=== PATIENT | female | born 1990 | race Caucasian/White ===

== ENCOUNTER → 2018-01-13 17:03 | Outpatient (CLI) | payer OTHER, SELFPAY ==
[2018-01-13 19:57] LABS: Chlamydia Trachomatis by PCR Negative (Negative); Neisserai gonorrhoeae by PCR Negative (Negative); Probe Check PASS; Sample Adequacy Control PASS; Specimen Processing Control PASS
== END ==
PROVIDERS: Visit Provider Obstetrics & Gynecology
DX: Z32.01 Encounter for pregnancy test, result positive (principal); Z11.3 Encounter for screening for infections with a predominantly sexual mode of transmission
CPT/HCPCS: 87491; 87591

== ENCOUNTER → 2018-02-08 17:20 | Outpatient (CLI) | payer OTHER, SELFPAY ==
[2018-02-08 17:49] LABS: Absolute Lymphocyte Count 1.65 X10^3/ul (0.83-4.51); Absolute Neutrophil Count 6.4 X10^3/uL (2.0-7.7); Basophil# 0.01 X10^3/uL; Basophil% 0.1 % (0-1); Eosinophil# 0.15 X10^3/uL; Eosinophils% 1.7 % (0-5); Hematocrit 32.7 % (37-47); Hemoglobin 10.9 g/dl (12.0-15.0); Lymphocyte # 1.65 X10^3/ul (4.0); Lymphocyte % 18.5 % (19-41); Mean Corp Hgb Conc 33.3 g/gl (32-36); Mean Corpuscular Hgb 31.1 pg (27.0-32.0); Mean Corpuscular Volume 93.2 fL (81-99); Mean Platelet Vol. 10.5 fl (6.2-12.0); Monocyte# 0.64 X10^3/uL; Monocyte% 7.2 % (0-10); Neutrophil # 6.43 X10^3/uL (2.7-7.7); Neutrophil % 72.3 % (47-70); POSITIVE COUNT NO; POSITIVE DIFFERENTIAL NO; POSITIVE MORPHOLOGY NO; Platelet Count 219 K/mm3 (150-450); RBC Distribution Width CV 12.7 % (11.6-14.6); RBC Distribution Width SD 42.2 fl (35.1-43.9); Red Blood Count 3.51 M/mm3 (4.2-5.4); White Blood Count 8.9 K/mm3 (4.4-11.0)
[2018-02-08 17:53] LABS: Color, Urine Yellow (Yellow); Glucose, Dipstick Normal (Normal); Ketone-Dipstick 5 mg/dl (Negative); Leukocyte Esterase-Dipstick Negative /ul (Negative); Nitrite-Dipstick Negative (Negative); Occult Blood-Urine Negative /ul (Negative); Protein-Dipstick 15 mg/dl (Negative); Specific Gravity, Urine 1.025 (1.002-1.030); Urine Bilirubin Dipstick Negative (Negative); Urine Clarity Sl. Cloudy (Clear); Urine Urobilinogen 1 mg/dl (Normal)
[2018-02-08 18:08] LABS: Amphetamine Urine VISTA NEGATIVE (<1000 ng/mL); Barbiturate Urine VISTA NEGATIVE (< 200 ng/mL); Benzodiazepine Urine VISTA NEGATIVE (< 200 ng/mL); Cocaine Urine VISTA NEGATIVE (< 300 ng/mL); Ecstacy Urine VISTA NEGATIVE (< 500 ng/mL); Methadone Urine VISTA NEGATIVE (< 300 ng/mL); PCP Urine VISTA NEGATIVE (< 25 ng/mL); THC Urine VISTA NEGATIVE (< 50 ng/mL); Vista UDS pH Range 6
[2018-02-08 18:33] LABS: Thyroid Stim Hormone (TSH) 2.04 uIU/mL (0.358-3.74)
[2018-02-09 10:16] LABS: HIV - WCH Non-Reactive (Nonreactive); Rubella IgG 357.3 IU/mL
[2018-02-10 12:05] LABS: HEPATITIS B SURFACE AG Negative (Negative); Hep C Antibodies <0.1 s/co ratio (0.0-0.9)
[2018-02-11 02:59] LABS: Prenatal RPR NONREACTIVE (NONREACTIVE)
== END ==
PROVIDERS: Visit Provider Obstetrics & Gynecology
DX: Z34.81 Encounter for supervision of other normal pregnancy, first trimester (principal)
CPT/HCPCS: 36415; 80307; 81002; 84443; 85025; 86703; 86762; 86803; 87340

== ENCOUNTER → 2018-06-02 16:27 | Outpatient (CLI) | payer OTHER, SELFPAY ==
[2018-06-02 17:39] LABS: Hematocrit 31.2 % (37-47); Hemoglobin 10.2 g/dl (12.0-15.0); Mean Corp Hgb Conc 32.7 g/gl (32-36); Mean Corpuscular Hgb 31.7 pg (27.0-32.0); Mean Corpuscular Volume 96.9 fL (81-99); Mean Platelet Vol. 10.7 fl (6.2-12.0); Platelet Count 191 K/mm3 (150-450); RBC Distribution Width CV 12.5 % (11.6-14.6); RBC Distribution Width SD 42.7 fl (35.1-43.9); Red Blood Count 3.22 M/mm3 (4.2-5.4); White Blood Count 10.3 K/mm3 (4.4-11.0)
[2018-06-02 17:43] LABS: Scan Indicated on CBC? Y/N NO
[2018-06-02 17:44] LABS: Glucose Challenge Gest 1H 50g 96 mg/dL (70-140)
[2018-06-03 14:38] LABS: Ferritin 17 ng/mL (8-252)
== END ==
PROVIDERS: Visit Provider Obstetrics & Gynecology
DX: O99.012 Anemia complicating pregnancy, second trimester (principal); D64.9 Anemia, unspecified; Z3A.00 Weeks of gestation of pregnancy not specified
CPT/HCPCS: 36415; 82728; 82950; 85027

== ENCOUNTER → 2018-08-04 16:46 | Outpatient (CLI) | payer OTHER, SELFPAY ==
[2018-08-04 20:13] LABS: Group B Strep DNA By PCR Negative (Negative); Internal Control PASS; Probe Check PASS; Specimen Processing Control PASS
== END ==
PROVIDERS: Visit Provider Obstetrics & Gynecology
DX: Z36.85 Encounter for antenatal screening for Streptococcus B (principal)
CPT/HCPCS: 87081; 87653

== ENCOUNTER 2018-09-01 18:20 | Inpatient (IN) | payer OTHER, SELFPAY ==
[2018-09-01 18:33] VITALS: BMI 28.9
[2018-09-01] MEDS: Lactated Ringers 1,000 ML 50 ML IV ×3 (18:48→22:14)
[2018-09-01] MEDS: Nalbuphine 10 MG/ML Ampul IV (18:49)
[2018-09-01 18:52] LABS: Hematocrit 33.1 % (37-47); Hemoglobin 11.1 g/dl (12.0-15.0); Mean Corp Hgb Conc 33.5 g/gl (32-36); Mean Corpuscular Volume 95.4 fL (81-99); Mean Platelet Vol. 11.1 fl (6.2-12.0); Platelet Count 177 K/mm3 (150-450); RBC Distribution Width CV 12.9 % (11.6-14.6); RBC Distribution Width SD 43.3 fl (35.1-43.9); Red Blood Count 3.47 M/mm3 (4.2-5.4); Scan Indicated on CBC? Y/N NO; White Blood Count 12.6 K/mm3 (4.4-11.0)
[2018-09-01] MEDS: fentaNYL-bupivacaine (epidural) 100 ML BAG EPIDURAL (19:47)
--- NOTE | 2018-09-01 22:33 | PCM.PN.BLA ---
Progress Note LABOR PROGRESS NOTE Gee is comfortable with her epidural and without complaints. AVSS GEN - NAD, AAO x 3 FHR 125, moderate variability, + accelerations, no decelerations TOCO 2-3/10 min SVE 6/90/-2 A/P: 28yo @ 40 3/7wga with Cat I FHR in active labor, -Amniotomy performed with clear fluid -Continue in labor -Maternal and statuses reassuring
[2018-09-02] MEDS: Ondansetron 4 MG/2 ML Vial IV (02:49)
[2018-09-02] MEDS: Oxytocin 30 units/NS 500 ml 30 UNITS/500 ML IV.SOLN 334 UNITS IV (04:38)
[2018-09-02] MEDS: Oxytocin 30 units/NS 500 ml 30 UNITS/500 ML IV.SOLN 167 UNITS IV (05:08)
--- NOTE | 2018-09-02 07:27 | PCM.OB.VAG ---
- Problem List (1) 40 weeks gestation of Status: Acute Vaginal Delivery Maternal Presentation: Active Labor Amniotic Membrane Rupture Type: Artificial Amniotic Fluid Description: Clear Final TASH: 08/29/18 Final TASH Source: US <20 weeks Gestational age: 40 Weeks and 4 Days Date of Procedure: 09/02/18 Pre-Operative Diagnosis: 40 4/7wga, labor Post-Operative Diagnosis: 40 4/7wga, labor Surgery/ Procedure Performed: Spontaneous Vaginal Delivery Anesthesiologist: Janett Diehl Type of Anesthesia: Epidural Description of Procedure: Patient FD/+2 station on my arrival with Cat I-II FHR. She pushed to deliver a male in TRACIE. The infant the was placed on the maternal abdomen and further attended by nursery personnel. The cord was doubly clamped and cut after approximately 4 minutes of life. The placenta delivered spontaneously and appeared intact on inspection. A first degree perineal laceration was repaired with 3-0 Vicryl Rapide. The fundus was firm and there was excellent hemostasis. Sponge counts and needle counts correct x 2. Presentation: Vertex Placental Delivery Description: Spontaneous Placenta Disposition: [facility] Cord Vessel Description: 3 Vessels Nuchal Cord Compression: Without compression Cord Entanglement: None Drain: Rodriguez to straight drain Estimated Blood Loss: 250 ml A gender: Male (1 minute): 8 (5 minute): 9 Episiotomy Description: None Laceration: Midline, Perineal Extension/lac, 1st degree Medications given after delivery: IV Pitocin
--- NOTE | 2018-09-02 07:41 | DCINST_ITS ---
Discharge Diet: No Restrictions Discharge Activity: Return to Normal Activity, May Shower, May Take a Tub Bath May resume sexual activity in: 6 weeks Lifting Restrictions: 20 lb Call your doctor if you observe: Fever of 101 or Higher, Inability to urinate, Inability to have a bowel movement, Using more than one pad per hour, Shortness of breath, Chest pain, Calf discomfort, Uncontrolled pain Suture Line Care: Avoid Pulling/Pushing Cleanse incision/area with: Soap & Water Additional Instructions: If you experience any of the following, contact your healthcare provider. * Bleeding that soaks a pad every hour for 2 hours * Fever 100.4 or higher * Unrelieved incision or abdominal pain * Swelling, redness, discharge or bleeding from your incision or episiotomy site * Your incision begins to separate * Problems urinating (including inability to urinate or burning while urinating). * Visual changes * Severe headache * Flu-like symptoms * Pain or redness in one of both of your breasts * Pain, warmth, tenderness or swelling in your legs, especially the calf area * Frequent nausea and vomiting * Symptoms of depression or anxiety If you experience any of the following, call 911 or go to the nearest Emergency Room. * Chest pain * Problems breathing * Seizure activity * Partial or complete paralysis of a body part, slurred speech, weakness or drooping of the face, or a sudden inability to walk or hold your balance Allergies/Adverse Reactions: Allergies No Known Allergies Allergy (Verified 09/01/18 18:36) Medications to take at Discharge Vits [Prenatabs FA] 1 tablet PO DAILY 11/08/16 Docusate Sodium [Colace] 100 mg PO BID PRN #60 capsule 09/02/18 Ibuprofen 600 mg PO TID PRN #30 tablet 09/02/18 The following prescriptions were given: Docusate Sodium [Colace] 100 mg PO BID PRN #60 capsule PRN Reason: Constipation Ibuprofen 600 mg PO TID PRN #30 tablet PRN Reason: Pain Please Follow Up With: Barbara Dale MD When: 6 weeks Primary Care Physician: Care Physician,No Primary [Primary Care Provider] - Test Results: Test results from this visit will be discussed in further detail at your follow- up appointment, if applicable.
[2018-09-02 09:33] VITALS: BP 117/67; PULSE 80; RESP 16; TEMP 36.8; O2SAT 99
[2018-09-02 13:05] VITALS: BP 118/68; PULSE 84; RESP 16; TEMP 36.6; O2SAT 99
[2018-09-02] MEDS: Ibuprofen 600 MG Tablet PO (13:43)
[2018-09-02] MEDS: Prenatal Vits Tablet 1 TABLET PO (13:57)
[2018-09-02 15:17] VITALS: BP 125/61; PULSE 63; RESP 18; TEMP 36.8; O2SAT 99
[2018-09-02] MEDS: Senna/Docusate Sodium 1 Tablet PO (17:19)
[2018-09-02 20:10] VITALS: BP 106/66; PULSE 61; RESP 16; TEMP 36.6; O2SAT 97
[2018-09-03 00:14] VITALS: BP 107/66; PULSE 87; RESP 16; TEMP 36.5; O2SAT 97
[2018-09-03 04:05] VITALS: BP 107/62; PULSE 67; RESP 16; TEMP 36.6; O2SAT 97
[2018-09-03 09:00] VITALS: BP 115/70; PULSE 78; RESP 18; TEMP 36.5
--- NOTE | 2018-09-03 09:58 | PCM.PN.OB ---
Patient Problems: Active and Suspected Problems (spontaneous vaginal delivery) (Acute) 40 weeks gestation of (Acute) Subjective: No specific complaints. Bleeding light. Breast feeding. Objective: Afeb VSS - Physical Exam General: Alert, Oriented x3, Cooperative, No apparent distress Lungs: Clear to auscultation, Normal air movement Cardiovascular: Regular rate, Regular Rhythm Abdomen: Soft, Non Tender, Non-Distended, - - Fundus firm nontender Extremities: No edema Skin: No rashes Neurological: Neuro grossly intact Psych/Mental Status: Normal Affect Comment: Lochia light Vital Signs Temp Pulse Resp BP Pulse Ox 97.7 F L 78 18 115/70 97 09/03/18 09:00 09/03/18 09:00 09/03/18 09:00 09/03/18 09:00 09/03/18 04:05 Oxygen Delivery Method Room Air Weight: 179 lb 7.3 oz Body Mass Index (BMI) 28.9 Intake and Output for Last 24 Hours 09/01/18 09/02/18 09/03/18 23:59 23:59 23:59 Intake Total 450 / 450 Output Total 650 / 650 Balance 450 / 450 -650 / -650 Medical Necessity - Tobacco Use Smoking Status: Never smoker Assessment/Plan All Active Problems (spontaneous vaginal delivery) (Acute) 40 weeks gestation of (Acute) Doing well on PP day#1. Would prefer dischrge today. Cleared medically for same. Home going instructions and warnings given.
--- NOTE | 2018-09-03 10:01 | PCM.DC.SUM ---
Discharge Date and Diagnosis - Problem List Patient Problems: Active and Suspected Problems (spontaneous vaginal delivery) (Acute) 40 weeks gestation of (Acute) Date of Admission: 09/02/18 Date of Discharge: 09/03/18 - Primary Discharge Diagnosis Active and Suspected Problems (spontaneous vaginal delivery) (Acute) 40 weeks gestation of (Acute) Hospital Course and Treatment Operations: None Procedures: - - Summary of Care Provided: The patient is a 28 year old F [admitted in sctive labor progressed to FD then pushed to deliver a live without complication. Discharged home on PP day#1. ] Discharge Diet: No Restrictions Discharge Activity: Return to Normal Activity, May Shower, May Take a Tub Bath Return to work on:: 11/02/18 May shower in (days): 0 May resume sexual activity in: 6 weeks Call your doctor if you observe: Fever of 101 or Higher, Inability to urinate, Inability to have a bowel movement, Using more than one pad per hour, Shortness of breath, Chest pain, Calf discomfort, Uncontrolled pain Suture Line Care: Avoid Pulling/Pushing Cleanse incision/area with: Soap & Water Home Medications: Medications to take at Discharge Vits [Prenatabs FA] 1 tablet PO DAILY 11/08/16 Docusate Sodium [Colace] 100 mg PO BID PRN #60 capsule 09/02/18 Ibuprofen 600 mg PO TID PRN #30 tablet 09/02/18 Following Prescrptions Were Given to Patient: Docusate Sodium [Colace] 100 mg PO BID PRN #60 capsule PRN Reason: Constipation Ibuprofen 600 mg PO TID PRN #30 tablet PRN Reason: Pain Primary Care Physician: Care Physician,No Primary [Primary Care Provider] - Please Follow Up With: Barbara Dale MD When: 6 weeks Disposition: Home Minutes spent on discharge:: 15 Patient Condition:: Good Medical Necessity - Tobacco Use Smoking Status: Never smoker Meaningful Use Info Meaningful Use Diagnoses (Choose all that apply): None applicable
[2018-09-03] MEDS: Ibuprofen 600 MG Tablet PO (10:16)
[2018-09-03] MEDS: Prenatal Vits Tablet 1 TABLET PO (13:04)
[2018-09-03 14:25] VITALS: BP 110/64; PULSE 62; RESP 18; TEMP 36.5
== END 2018-09-03 14:25 | disposition home or self-care (01) | DRG 807 ==
LOC: WPOUT 18:27
PROVIDERS: Admitting Provider Obstetrics & Gynecology; Referring Provider Obstetrics & Gynecology; Visit Provider Obstetrics & Gynecology
DX: O48.0 Post-term pregnancy (principal); Z37.0 Single live birth; Z3A.40 40 weeks gestation of pregnancy; O70.0 First degree perineal laceration during delivery; O99.02 Anemia complicating childbirth; D50.9 Iron deficiency anemia, unspecified; Z79.899 Other long term (current) drug therapy
CPT/HCPCS: 59025; 59050; 85027; 86850; 86900; 99218; J7120; 90686; G0378; J2405

== ENCOUNTER → 2019-10-05 15:07 | Outpatient (CLI) | payer OTHER, SELFPAY ==
[2019-10-11 11:36] LABS: HPV APTIMA, High Risk Negative (Negative)
== END ==
PROVIDERS: Referring Provider Obstetrics & Gynecology; Visit Provider Obstetrics & Gynecology
DX: Z12.4 Encounter for screening for malignant neoplasm of cervix (principal)
CPT/HCPCS: 87624; 88175; G0145

== ENCOUNTER 2022-02-26 13:48 | Outpatient (CLI) | payer OTHER, SELFPAY ==
[2022-03-05 15:46] LABS: HPV APTIMA, High Risk Negative (Negative)
== END 2022-02-26 23:59 | disposition home or self-care (01) ==
PROVIDERS: Visit Provider Obstetrics & Gynecology
DX: Z12.4 Encounter for screening for malignant neoplasm of cervix (principal)
CPT/HCPCS: 87624; 88175; G0145

== ENCOUNTER → 2022-03-18 | Outpatient (CLI) | payer OTHER, SELFPAY ==
[2022-03-21 11:08] LABS: Chlamydia By Nucleic Acid AMP Negative (Negative)
[2022-03-21 11:25] LABS: Gonococcus By Nucleic Acid AMP Negative (Negative)
== END | disposition home or self-care (01) ==
LOC: LABSPEC 16:30
PROVIDERS: Visit Provider Obstetrics & Gynecology
DX: Z30.430 Encounter for insertion of intrauterine contraceptive device (principal)
CPT/HCPCS: 87491; 87591

== ENCOUNTER → 2023-05-06 | Outpatient (CLI) | payer OTHER, SELFPAY ==
--- NOTE | 2023-05-06 16:43 | BI_ITS ---
MAMMOGRAPHY - BILATERAL SCREENING REASON FOR EXAM: Female, 32 years old. Routine annual screening examination. PERTINENT HISTORY: Sister with breast cancer. TECHNIQUE: Digital bilateral breast maura (3D mammographic acquisition) in the CC and MLO projections. 2-D mediolateral oblique (MLO) and craniocaudad (CC) views of both breasts were obtained. CAD: Full Field Digital Mammography with Computer Added Detection was performed. COMPARISON: None. Baseline examination. FINDINGS: Breast Composition: The breasts are extremely dense, which lowers the sensitivity of mammography. There are no dominant masses or suspicious calcifications. No other significant abnormalities are identified. BI/SCRN MAMM (CAD)W/MAURA BILAT IMPRESSION: Negative screening mammogram. Yearly followup mammogram recommended. (A) ASSESSMENT CATEGORY: BIRADS Category 1: Negative. A letter regarding these results will be sent to the patient by the facility within 30 days. Approximately 10% of breast cancers are not detected by mammography. A normal mammogram should not delay biopsy of a clinically suspicious abnormality. [id number] Electronically Signed: Chris Bliss MD at 8:21 EDT ,
== END | disposition home or self-care (01) ==
LOC: OPBI 05-07 11:41
PROVIDERS: PCP Nurse Practitioner Family; Referring Provider Student in an Organized Health Care Education/Training Program; Visit Provider Student in an Organized Health Care Education/Training Program
DX: Z12.31 Encounter for screening mammogram for malignant neoplasm of breast (principal)
CPT/HCPCS: 77063; 77067

== ENCOUNTER → 2025-05-02 | Outpatient (CLI) | payer OTHER, SELFPAY ==
[2025-05-02 13:16] LABS: Vitamin D,25 Hydroxy 23.6 ng/mL (30-100)
== END | disposition home or self-care (01) ==
PROVIDERS: PCP Nurse Practitioner Family; Referring Provider Nurse Practitioner Women's Health; Visit Provider Nurse Practitioner Women's Health
DX: R53.83 Other fatigue (principal); Z80.3 Family history of malignant neoplasm of breast
CPT/HCPCS: 36415; 82306

== ENCOUNTER → 2025-06-20 | Outpatient (CLI) | payer OTHER, SELFPAY ==
--- NOTE | 2025-06-20 12:00 | BI_ITS ---
EXAM: SCRN MAMM (CAD)W/MAURA BILAT DATE: 06/20/2025 CLINICAL HISTORY: F, Age 34 y/o , SCREEN TECHNIQUE: SCRN MAMM (CAD)W/MAURA BILAT COMPARISON: Prior exam(s) dated 05/06/2023. FINDINGS: TISSUE DENSITY: The breasts are extremely dense, which lowers the sensitivity of mammography. The mammogram demonstrates that the patient has dense breasts. Supplemental screening with whole breast ultrasound or MRI may be considered for further evaluation. Bilateral Breast Mammographic Findings: No significant masses, calcifications or other abnormalities are identified. BI/SCRN MAMM (CAD)W/MAURA BILAT IMPRESSION: There is no mammographic evidence of malignancy. OVERALL FINAL ASSESSMENT BI-RADS 1: NEGATIVE. RECOMMENDATION: Routine annual follow-up in 1 Year A letter with findings and recommendations will be mailed to the patient. Reading Location: [id number]
== END | disposition home or self-care (01) ==
LOC: OPBI 11:48
PROVIDERS: PCP Nurse Practitioner Family; Referring Provider Nurse Practitioner Women's Health; Visit Provider Nurse Practitioner Women's Health
DX: Z12.31 Encounter for screening mammogram for malignant neoplasm of breast (principal)
CPT/HCPCS: 77063; 77067